=== PATIENT | female | born 1975 | race African-American/Black ===

== ENCOUNTER 2020-12-29 20:32 | Emergency (ER) | payer OTHER ==
[~2020-12-29] VITALS: Ht 160 cm; Wt 96.2 kg
[2020-12-29] MEDS ORDERED: FLEXERIL PO (21:36)
[2020-12-29] MEDS ORDERED: MEDROLDOSEPACK PO (21:36)
[2020-12-29] MEDS ORDERED: APAP W/CODEINE1 TA2 PO (21:36)
[2020-12-30 01:22] VITALS: BP 150/86
== END 2020-12-30 01:22 | disposition home or self-care (01) ==
LOC: ER 20:32
DX: S16.1XXA Strain of muscle, fascia and tendon at neck level, initial encounter (principal); Z88.6 Allergy status to analgesic agent; V49.49XA Driver injured in collision with other motor vehicles in traffic accident, initial encounter; Y93.29 Activity, other involving ice and snow; Y92.413 State road as the place of occurrence of the external cause; Y99.8 Other external cause status